=== PATIENT | female | born 1980 | race Caucasian/White ===

== ENCOUNTER 2020-02-26 22:11 | Observation (INO) | payer OTHER ==
[2020-02-26 22:37] LABS: Bilirubin Negative (Negative); Blood, Urine Small (Negative); Clarity Cloudy (Clear); Glucose, Urine (Dipstick) 500 mg/dL (Negative); Leukocyte Small (Negative); Nitrite Negative (Negative); Protein, Urine (Dipstick) 30 mg/dL (Neg-Trace); Urobilinogen 0.2 mg/dL (Less than 2)
[2020-02-26 22:38] LABS: Pregnancy Test - Urine (BHCG) Negative (Negative); Pregu Control Background? CLEAR/WHITE (CLR/WHITE); Pregu Control Bar Appear? YES (CONTROL BAR); Specific Gravity 1.015 (1.002-1.036)
[2020-02-26 22:41] LABS: Bacteria/HPF 1+ HPF (None Seen); Squamous Epithelial 0-3 HPF (0-3); WBC/HPF Greater Than 50 HPF (0-3)
[2020-02-26] MEDS ORDERED: cefTRIAXone\\ROCEPHIN 1 GM VIAL ONE (22:51)
[2020-02-26] MEDS ORDERED: Sodium Chloride 0.9% 100 ML ONE (22:51)
[2020-02-26 23:33] LABS: #Basophils 0.1 thou/uL (0.0-0.2); #Lymphocytes 1.4 thou/uL (1.20-3.40); #Monocytes 0.9 thou/uL (0.11-0.59); #Neutrophils 7.8 thou/uL (1.40-6.50); %Basophils 0.8 % (0.0-1.0); %Lymphocytes 13.8 % (21.0-51.0); %Monocytes 8.5 % (0.0-10.0); %Neutrophils 76.8 % (42.0-75.0); Hemoglobin 12.8 g/dL (12.0-16.0); Mean Corpuscular Hemoglobin 28.7 pg (27.0-31.0); Mean Corpuscular Volume 89.7 fL (78.0-98.0); Mean Platelet Volume 7.7 fL (7.4-10.4); Platelet Count 330 thou/uL (130-400); RBC Distribution Width 11.9 % (11.5-14.5); Red Blood Cell (RBC) Count 4.48 mill/uL (4.20-5.40); White Blood Cell (WBC) Count 10.1 thou/uL (4.8-10.8)
[2020-02-26 23:43] LABS: ALT (SGPT) Less than 7 U/L (8-55); AST (SGOT) 13 U/L (5-34); Albumin 4.1 g/dL (3.5-5.0); Alkaline Phosphatase 74 U/L (40-110); Anion Gap 13 mmol/L (10-20); BUN (Urea Nitrogen) 5 mg/dL (7.0-18.7); Calc. Creatinine Clearance 0 mL/min (70-130); Calcium 9.1 mg/dL (7.8-10.44); Carbon Dioxide 25 mmol/L (22-29); Chloride 106 mmol/L (98-107); Estimated GFR-MDRD 89; Globulin 2.6 g/dL (2.4-3.5); Glucose 62 mg/dL (70-105); Potassium 3.6 mmol/L (3.5-5.1); Protein, Total 6.7 g/dL (6.0-8.3); Sodium 140 mmol/L (136-145)
[2020-02-27] MEDS ORDERED: Acetaminophen 325 MG TAB ONE (00:23)
[2020-02-27 00:41] VITALS: BMI 28.9
[2020-02-27] MEDS ORDERED: Ondansetron PF 4 MG/2 ML Vial IVP PRN (01:16)
[2020-02-27] MEDS ORDERED: Ondansetron ODT 4 MG TAB SL PRN (01:16)
[2020-02-27] MEDS ORDERED: HYDROcodone/Acetaminophen 5/325 mg Tablet PO PRN (01:16)
[2020-02-27] MEDS: Sodium Chloride 0.9% 1,000 ML IV SCH ×2 (02:32→05:17)
[2020-02-27] MEDS ORDERED: HumuLIN 70/30 (300 UNITS/3 ML VIAL) SC PRN (07:49)
[2020-02-27] MEDS ORDERED: Lantus 1000 UNITS/10 ML VIAL SC SCH (09:00)
[2020-02-27] MEDS ORDERED: cefTRIAXone\\ROCEPHIN 1 GM in Sodium Chloride 0.9% 100 ML IVPB SCH (12:00)
[2020-02-27 12:13] VITALS: BP 130/65; TEMP 98.4
--- NOTE | 2020-02-27 12:45 | HP ---
HISTORY OF PRESENT ILLNESS: A 40-year-old female admitted by [facility] for fever of 102, UTI, and rule out sepsis. She arrived at [facility] about 10 o'clock on the , complaining of dysuria, fever, chills, myalgia, and nausea. She was found to be in sinus tachycardia with the rate of 110 to 120. Around 10 p.m. at night, her onset of symptoms were about 36 hours. She was given IV fluids and one dose of Rocephin and admitted as an observation patient. CURRENT MEDICATIONS: 1. Lantus insulin 100 units subcu daily. 2. Humulin 70/30 p.r.n. per sliding scale before meals and at bedtime. 3. She was recently started on Ozempic 0.25 mg subcu daily. PAST MEDICAL HISTORY: Type 1 diabetes mellitus. PAST SURGICAL HISTORY: x2, bilateral tubal ligation. FAMILY HISTORY: Noncontributory. REVIEW OF SYSTEMS: Negative 14-point review of systems. PHYSICAL EXAMINATION: GENERAL: Alert and oriented, in no acute distress, appropriate. HEENT: Pupils are equal, round, and reactive to light and accommodation. Conjunctivae are clear. No discharge. CARDIOVASCULAR: Heart rate, sinus tachycardia, rate of 100. No murmurs. Normal S1 and S2. No ectopies. RESPIRATION: Clear to auscultation bilaterally. Respirations unlabored. ABDOMEN: Soft, nontender, and nondistended. No mass/megaly. No CVAT or suprapubic tenderness. EXTREMITIES: No edema, cyanosis, or clubbing. 2+ peripheral pulses in all 4 extremities. Laboratory Data: WBC 10.1 Hemoglobin 13, Hematocrit 40, Neutrophil 77% (7.8), CMP Normal, Urine WBCs >50, Bact 1+ Leuk Ciera Small, Urine and Blood Cultures pending ASSESSMENT: Fever, Urinary tract infection, rule out sepsis; diabetes mellitus Type I PLAN: 1. Continue IV fluids for hydration. 2. Rocephin 1 g q.12 hours. 3. Continue home medications. Job ID: [id number] [facility]
--- NOTE | 2020-02-29 03:11 | DIS ---
DATE OF ADMISSION: 02/27/2020 DATE OF DISCHARGE: 02/27/2020 DISCHARGE DISPOSITION: Home. DISCHARGE DIAGNOSES: 1. Urinary tract infection, rule out sepsis. 2. Diabetes mellitus, type 1. DISCHARGE MEDICATIONS: 1. Lantus insulin 100 units subcu daily. 2. Humulin 70/30 p.r.n. per sliding scale before meals and at bedtime. 3. Ozempic 0.25 mg subcu daily. ALLERGIES: NO KNOWN ALLERGIES. HOSPITAL COURSE: A 40-year-old female admitted to [facility] by Emergency Room for fever of 102, UTI, rule out sepsis. She received IV fluids for hydration, 2 doses of Rocephin 1 g 12 hours apart. The morning after her midnight admission, she reported feeling much better. Her labs done upon admission were WBCs 10.1. Her UA was positive for UTI. Urine culture and blood cultures are still pending. She was afebrile without flank pain and requested discharge to home on p.o. antibiotics. She will be discharged to home with prescriptions sent for cefdinir 300 mg p.o. b.i.d. x7 more days. Advised to follow up with both Endocrinology and establish care with local PCP. Job ID: [id number]
== END 2020-02-27 12:45 | disposition home or self-care (01) ==
LOC: BURERS 22:11 → BURMED 02-27 00:03
PROVIDERS: ADMIT Family Medicine; ATTEND Family Medicine
DX: N39.0 Urinary tract infection, site not specified (principal); E10.9 Type 1 diabetes mellitus without complications; Z79.899 Other long term (current) drug therapy
CPT/HCPCS: 36415; 36416; 80053; 81003; 81015; 81025; 83605; 84484; 85025; 87040; 87077; 87086; 87186; 93005; 96361; 96365; 96366; G0378; J0696; J3490; J7050